=== PATIENT | male | born 1950 | race African-American/Black ===

== ENCOUNTER 2016-03-13 06:52 | Emergency (ER) | payer OTHER ==
[~2016-03-13] VITALS: Ht 188 cm; Wt 87.6 kg
[~2016-03-13 06:52] MED LIST: ASPIR 8181 M1 PO; GLIPIZIDE10 MG PO; GLIPIZIDE5 MG PO; HYDROCODON-ACE1 EAC8 PO; LIPITOR80 MG PO; LYRICA150 MG PO; LYRICA25 MG PO; MOBIC7.5 MG PO; MOTRIN600 MG PO; MOTRIN800 MG PO; NORCO 5/3251 TABLET PO; NORTRIPTYLINE H25 MG PO; NORTRIPTYLINE H75 MG PO; OXAYDO5 MG PO; OXYCODONE HCL5 MG PO; PRAVACHOL10 MG PO; TRAMADOL HCL50 MG PO; TYLENOL WITH C1 EACH PO; ZESTRIL2.5 MG PO; [UNRECOGNIZED DRUG - REMARK] PO
[2016-03-13 07:35] LABS: HEMATOCRIT 39.7 % (38.0-50.0); MCH 28.1 PG (29.0-34.0); MCV 85.2 FL (86-99); MEAN PLAT.VOLUME 9.6 uM^3 (9.0-12.4); PLATELET COUNT 160 K/uL (156-360); RBC DIS.WIDTH-CV 13.7 % (11.8-14.6); RED BLOOD COUNT 4.66 M/uL (4.00-5.50); WHITE BLOOD COUNT 8.2 K/uL (4.1-10.2)
[2016-03-13 08:01] LABS: ANION GAP 8 MEQ/L (2-14); CHLORIDE 100 MEQ/L (99-109); SAMPLE HEMOLYSIS CHECK 0; SAMPLE ICTERIC CHECK 0; SAMPLE LIPEMIA CHECK 0; SODIUM 135 MEQ/L (136-147); TOTAL BILIRUBIN 0.7 MG/DL (0.0-1.0)
[2016-03-13 08:07] LABS: ALKALINE PHOSPHATASE 56 IU/L (3-129); GFR ESTIMATE (CALCULATED) > 59 mL/min/; GLUCOSE 101 mg/dL (70-99); UREA NITROGEN (BUN) 11 mg/dL (9-23); URIC ACID 6.9 mg/dL (3.1-9.2)
[2016-03-13 08:38] VITALS: BP 144/79
== END 2016-03-13 08:38 | disposition home or self-care (01) ==
LOC: EME 06:52
PROVIDERS: Nurse Practitioner Family
DX: E11.40 Type 2 diabetes mellitus with diabetic neuropathy, unspecified (principal); M25.571 Pain in right ankle and joints of right foot; Z88.8 Allergy status to other drugs, medicaments and biological substances; E78.5 Hyperlipidemia, unspecified; I10 Essential (primary) hypertension; Z79.84 Long term (current) use of oral hypoglycemic drugs
CPT/HCPCS: 73610; 80053; 84550; 85027; 99281; 99284; J1885

== ENCOUNTER 2016-03-27 16:35 | Emergency (ER) | payer OTHER ==
[~2016-03-27] VITALS: Ht 188 cm; Wt 84.9 kg
[2016-03-27 19:03] VITALS: BP 126/81
== END 2016-03-27 19:04 | disposition home or self-care (01) ==
LOC: EME 16:35
DX: M25.572 Pain in left ankle and joints of left foot (principal); G89.29 Other chronic pain; G62.9 Polyneuropathy, unspecified
CPT/HCPCS: 99281; 99284; J3010

== ENCOUNTER 2016-04-18 06:56 | Emergency (ER) | payer OTHER ==
[~2016-04-18] VITALS: Ht 188 cm; Wt 85.0 kg
[2016-04-18 08:48] VITALS: BP 141/106
== END 2016-04-18 08:48 | disposition home or self-care (01) ==
LOC: EME 06:56
DX: M25.572 Pain in left ankle and joints of left foot (principal); G89.29 Other chronic pain; E11.40 Type 2 diabetes mellitus with diabetic neuropathy, unspecified
CPT/HCPCS: 99281; 99283; J3010

== ENCOUNTER 2016-04-18 14:37 | Emergency (ER) | payer OTHER ==
[~2016-04-18] VITALS: Ht 188 cm; Wt 84.1 kg
[2016-04-18 17:28] VITALS: BP 141/86
== END 2016-04-18 17:28 | disposition home or self-care (01) ==
LOC: EME 14:37
DX: G62.9 Polyneuropathy, unspecified (principal)
CPT/HCPCS: 99281; 99283; J1170

== ENCOUNTER 2016-05-19 16:29 | Emergency (ER) | payer OTHER ==
[~2016-05-19] VITALS: Ht 188 cm; Wt 87.1 kg
[2016-05-19 19:31] VITALS: BP 172/87
== END 2016-05-19 19:33 | disposition home or self-care (01) ==
LOC: EME 16:29
DX: G62.9 Polyneuropathy, unspecified (principal); M79.672 Pain in left foot; E11.9 Type 2 diabetes mellitus without complications
CPT/HCPCS: 99281; 99283; J3010

== ENCOUNTER 2016-05-22 21:17 | Emergency (ER) | payer OTHER ==
[~2016-05-22] VITALS: Ht 188 cm; Wt 87.3 kg
[2016-05-22] MEDS ORDERED: KEFLEX500 MG PO (23:06)
[2016-05-22 23:38] VITALS: BP 112/92
== END 2016-05-22 23:39 | disposition home or self-care (01) ==
LOC: EME 21:17
DX: S97.112A Crushing injury of left great toe, initial encounter (principal); W20.8XXA Other cause of strike by thrown, projected or falling object, initial encounter; E11.9 Type 2 diabetes mellitus without complications; I10 Essential (primary) hypertension; E78.5 Hyperlipidemia, unspecified
CPT/HCPCS: 73660; 99281; 99284

== ENCOUNTER 2016-05-29 04:02 | Emergency (ER) | payer OTHER ==
[~2016-05-29] VITALS: Ht 188 cm; Wt 88.4 kg
[~2016-05-29 04:02] MED LIST changes: +KEFLEX500 MG PO
[2016-05-29 05:53] VITALS: BP 169/101
== END 2016-05-29 05:58 | disposition home or self-care (01) ==
LOC: EME 04:02
DX: M25.572 Pain in left ankle and joints of left foot (principal); G89.29 Other chronic pain; I10 Essential (primary) hypertension; M79.605 Pain in left leg
CPT/HCPCS: 99281; 99284; J3010

== ENCOUNTER 2016-11-20 07:32 | Emergency (ER) | payer OTHER ==
[~2016-11-20] VITALS: Ht 188 cm; Wt 82.8 kg
[2016-11-20] MEDS ORDERED: ULTRAM50 MG PO (08:02)
[2016-11-20 08:14] VITALS: BP 131/78
== END 2016-11-20 08:15 | disposition home or self-care (01) ==
LOC: EME 07:32
DX: G62.9 Polyneuropathy, unspecified (principal); G89.29 Other chronic pain; M79.605 Pain in left leg; I10 Essential (primary) hypertension; E78.5 Hyperlipidemia, unspecified; E11.9 Type 2 diabetes mellitus without complications
CPT/HCPCS: 99281; 99283; J1885

== ENCOUNTER 2016-12-12 08:34 | Emergency (ER) | payer OTHER ==
[~2016-12-12] VITALS: Ht 188 cm; Wt 84.9 kg
[~2016-12-12 08:34] MED LIST changes: +ULTRAM50 MG PO
[2016-12-12 09:58] LABS: CHLORIDE 101 mEq/L (99-109); POTASSIUM 3.7 mEq/L (3.7-5.4); SODIUM 138 mEq/L (136-147)
[2016-12-12 10:00] LABS: GLUCOSE 83 mg/dL (70-99)
[2016-12-12 10:02] LABS: ANION GAP 10 MEQ/L (2-14); TOTAL BILIRUBIN 0.9 mg/dL (0.0-1.0)
[2016-12-12 10:04] LABS: ALKALINE PHOSPHATASE 81 IU/L (3-129); GFR ESTIMATE (CALCULATED) > 59 mL/min/
[2016-12-12 10:05] LABS: UREA NITROGEN (BUN) 10 mg/dL (9-23)
[2016-12-12 10:34] VITALS: BP 110/89
== END 2016-12-12 10:35 | disposition home or self-care (01) ==
LOC: EME 08:34
PROVIDERS: Nurse Practitioner Family
DX: E11.610 Type 2 diabetes mellitus with diabetic neuropathic arthropathy (principal)
CPT/HCPCS: 80053; 99281; 99284

== ENCOUNTER 2016-12-27 07:57 | Emergency (ER) | payer OTHER ==
[~2016-12-27] VITALS: Ht 188 cm; Wt 83.1 kg
[2016-12-27 08:58] VITALS: BP 145/98
== END 2016-12-27 08:58 | disposition home or self-care (01) ==
LOC: EME 07:57
DX: E11.40 Type 2 diabetes mellitus with diabetic neuropathy, unspecified (principal); M25.572 Pain in left ankle and joints of left foot; E78.5 Hyperlipidemia, unspecified; G89.29 Other chronic pain; I10 Essential (primary) hypertension
CPT/HCPCS: 99281; 99284; J1885

== ENCOUNTER 2017-01-23 15:20 | Emergency (ER) | payer OTHER ==
[~2017-01-23] VITALS: Ht 188 cm; Wt 84.6 kg
[2017-01-23 16:59] VITALS: BP 142/89
== END 2017-01-23 16:59 | disposition home or self-care (01) ==
LOC: EME 15:20
DX: E11.40 Type 2 diabetes mellitus with diabetic neuropathy, unspecified (principal); M25.572 Pain in left ankle and joints of left foot; M79.89 Other specified soft tissue disorders
CPT/HCPCS: 73610; 99281; 99284; J1885; J3010

== ENCOUNTER 2017-02-12 03:21 | Emergency (ER) | payer OTHER ==
[~2017-02-12] VITALS: Ht 188 cm; Wt 86.6 kg
[2017-02-12 05:55] VITALS: BP 140/95
== END 2017-02-12 06:11 | disposition home or self-care (01) ==
LOC: EME 03:21
DX: G89.29 Other chronic pain (principal); M25.571 Pain in right ankle and joints of right foot; E11.40 Type 2 diabetes mellitus with diabetic neuropathy, unspecified; I10 Essential (primary) hypertension; E78.00 Pure hypercholesterolemia, unspecified; Z79.84 Long term (current) use of oral hypoglycemic drugs
CPT/HCPCS: 99281; 99283; J3010

== ENCOUNTER 2017-02-23 22:02 | Emergency (ER) | payer OTHER ==
[~2017-02-23] VITALS: Ht 188 cm; Wt 88.7 kg
[2017-02-24 00:21] VITALS: BP 133/80
== END 2017-02-24 00:22 | disposition home or self-care (01) ==
LOC: EME 22:02
DX: M25.572 Pain in left ankle and joints of left foot (principal); G89.29 Other chronic pain; M25.472 Effusion, left ankle; E11.40 Type 2 diabetes mellitus with diabetic neuropathy, unspecified; I10 Essential (primary) hypertension; E78.5 Hyperlipidemia, unspecified; Z79.84 Long term (current) use of oral hypoglycemic drugs
CPT/HCPCS: 73610; 99281; 99284; J2270

== ENCOUNTER 2017-03-08 19:25 | Emergency (ER) | payer OTHER ==
[~2017-03-08] VITALS: Ht 188 cm; Wt 88.3 kg
[2017-03-08] MEDS ORDERED: OXAYDO5 MG PO (21:07)
[2017-03-08] MEDS ORDERED: LYRICA150 MG PO (21:08)
[2017-03-08 22:44] LABS: BASOPHIL (%) 0.7 % (0-1); BASOPHIL COUNT 0.1 K/uL (0-0.1); EOSINOPHIL (%) 2.1 % (0-5); EOSINOPHIL COUNT 0.2 K/uL (0-0.3); HEMATOCRIT 42.9 % (38.0-50.0); HEMOGLOBIN 14.3 G/DL (12.5-16.6); IMMATURE GRANULOCYTE (%) 0.3 % (0.0-0.7); LYMPHOCYTE (%) 38.6 % (15-42); LYMPHOCYTE COUNT 2.8 K/uL (1.0-2.8); MCH 29.2 PG (29.0-34.0); MCHC 33.3 G/DL (30.0-36.0); MCV 87.7 FL (86-99); MONOCYTE (%) 10.4 % (3-12); MONOCYTE COUNT 0.8 K/uL (0-0.8); NEUTROPHIL (%) 47.9 % (45-76); NEUTROPHIL COUNT 3.4 K/uL (1.8-6.4); PLATELET COUNT 218 K/uL (156-360); RBC DIS.WIDTH-CV 13.8 % (11.8-14.6); RBC DIS.WIDTH-SD 44.7 % (39-53); RED BLOOD COUNT 4.89 M/uL (4.00-5.50); WHITE BLOOD COUNT 7.2 K/uL (4.1-10.2)
[2017-03-08 22:53] LABS: CHLORIDE 103 mEq/L (99-109); POTASSIUM 3.7 mEq/L (3.7-5.4); SODIUM 137 mEq/L (136-147)
[2017-03-08 22:55] LABS: GLUCOSE 197 mg/dL (70-99)
[2017-03-08 22:59] LABS: CREATININE 1.5 mg/dL (0.6-1.3); GFR ESTIMATE (CALCULATED) > 59 mL/min/ (58.99-99999)
[2017-03-08 23:00] LABS: UREA NITROGEN (BUN) 11 mg/dL (9-23)
[2017-03-08 23:01] LABS: URIC ACID 6.8 mg/dL (3.1-9.2)
[2017-03-09 00:25] VITALS: BP 180/90
== END 2017-03-09 00:25 | disposition home or self-care (01) ==
LOC: EME 19:25
PROVIDERS: Physician Assistant
DX: M25.572 Pain in left ankle and joints of left foot (principal); E11.9 Type 2 diabetes mellitus without complications
CPT/HCPCS: 80048; 84550; 85025; 99281; 99284; J1885

== ENCOUNTER 2017-03-17 07:07 | Emergency (ER) | payer OTHER ==
[~2017-03-17] VITALS: Ht 188 cm; Wt 85.3 kg
[2017-03-17 08:23] VITALS: BP 155/93
== END 2017-03-17 08:24 | disposition home or self-care (01) ==
LOC: EME 07:07
DX: M25.572 Pain in left ankle and joints of left foot (principal); G89.29 Other chronic pain; I10 Essential (primary) hypertension; E78.5 Hyperlipidemia, unspecified; E11.9 Type 2 diabetes mellitus without complications; Z79.84 Long term (current) use of oral hypoglycemic drugs
CPT/HCPCS: 99281; 99283; J1885

== ENCOUNTER 2017-05-05 01:12 | Emergency (ER) | payer OTHER ==
[~2017-05-05] VITALS: Ht 190.5 cm; Wt 89.4 kg
[2017-05-05 02:27] LABS: HEMATOCRIT 42.3 % (38.0-50.0); HEMOGLOBIN 14.5 G/DL (12.5-16.6); MCH 29.6 PG (29.0-34.0); MCHC 34.3 G/DL (30.0-36.0); MCV 86.3 FL (86-99); PLATELET COUNT 231 K/uL (156-360); RBC DIS.WIDTH-CV 13.3 % (11.8-14.6)
[2017-05-05 02:35] LABS: CHLORIDE 101 mEq/L (99-109); POTASSIUM 4.2 mEq/L (3.7-5.4); SODIUM 133 mEq/L (136-147)
[2017-05-05 02:39] LABS: GLUCOSE 384 mg/dL (70-99)
[2017-05-05 02:41] LABS: CREATININE 1.4 mg/dL (0.6-1.3); GFR ESTIMATE (CALCULATED) > 59 mL/min/ (58.99-99999)
[2017-05-05 02:42] LABS: UREA NITROGEN (BUN) 11 mg/dL (9-23)
[2017-05-05 03:02] LABS: CREATINE KINASE 53 IU/L (1-294)
[2017-05-05 04:35] VITALS: BP 159/88
== END 2017-05-05 04:39 | disposition home or self-care (01) ==
LOC: EME 01:12
PROVIDERS: Physician Assistant
DX: E11.42 Type 2 diabetes mellitus with diabetic polyneuropathy (principal); E11.65 Type 2 diabetes mellitus with hyperglycemia; R11.2 Nausea with vomiting, unspecified; T41.295A Adverse effect of other general anesthetics, initial encounter; I44.0 Atrioventricular block, first degree; R94.31 Abnormal electrocardiogram [ECG] [EKG]; G89.29 Other chronic pain; Z79.891 Long term (current) use of opiate analgesic; Z79.84 Long term (current) use of oral hypoglycemic drugs; Z88.8 Allergy status to other drugs, medicaments and biological substances
CPT/HCPCS: 80048; 82550; 85027; 93005; 99281; 99284; J3010

== ENCOUNTER 2017-06-07 03:14 | Emergency (ER) | payer OTHER ==
[~2017-06-07] VITALS: Ht 188 cm; Wt 89.6 kg
[2017-06-07] MEDS ORDERED: OXYCONTIN15 MG PO (04:40)
[2017-06-07 05:07] VITALS: BP 184/97
== END 2017-06-07 05:07 | disposition home or self-care (01) ==
LOC: EME 03:14
DX: E11.40 Type 2 diabetes mellitus with diabetic neuropathy, unspecified (principal); I10 Essential (primary) hypertension; Z88.8 Allergy status to other drugs, medicaments and biological substances
CPT/HCPCS: 99281; 99283; J1885

== ENCOUNTER 2017-07-06 04:30 | Emergency (ER) | payer OTHER ==
[~2017-07-06] VITALS: Ht 188 cm; Wt 86.0 kg
[~2017-07-06 04:30] MED LIST changes: +OXYCONTIN15 MG PO
[2017-07-06 04:33] VITALS: BP 132/98
== END 2017-07-06 05:39 | disposition home or self-care (01) ==
LOC: EME 04:30
DX: G89.29 Other chronic pain (principal); M25.572 Pain in left ankle and joints of left foot; I10 Essential (primary) hypertension; Z88.8 Allergy status to other drugs, medicaments and biological substances
CPT/HCPCS: 99281; 99283; J1885

== ENCOUNTER 2017-07-20 13:27 | Emergency (ER) | payer OTHER ==
[~2017-07-20] VITALS: Ht 188 cm; Wt 85.7 kg
[2017-07-20 15:23] VITALS: BP 143/95
== END 2017-07-20 16:10 | disposition home or self-care (01) ==
LOC: RME 13:27 → EME 13:27 → RME 16:10
DX: M19.90 Unspecified osteoarthritis, unspecified site (principal); E11.42 Type 2 diabetes mellitus with diabetic polyneuropathy; I10 Essential (primary) hypertension; Z79.84 Long term (current) use of oral hypoglycemic drugs; Z88.8 Allergy status to other drugs, medicaments and biological substances
CPT/HCPCS: 99281; 99284; J1885

== ENCOUNTER 2017-07-30 04:39 | Emergency (ER) | payer OTHER ==
[~2017-07-30] VITALS: Ht 188 cm; Wt 87.1 kg
[2017-07-30 08:12] LABS: HEMOGLOBIN 14.8 G/DL (12.5-16.6); MCH 29.2 PG (29.0-34.0); MCHC 34.4 G/DL (30.0-36.0); RBC DIS.WIDTH-CV 13.1 % (11.8-14.6); RBC DIS.WIDTH-SD 40.9 % (39-53); RED BLOOD COUNT 5.06 M/uL (4.00-5.50); WHITE BLOOD COUNT 7.7 K/uL (4.1-10.2)
[2017-07-30 08:24] LABS: URIC ACID 6.1 mg/dL (3.1-9.2)
[2017-07-30 08:28] LABS: CHLORIDE 101 mEq/L (99-109); POTASSIUM 4.1 mEq/L (3.7-5.4)
[2017-07-30 08:29] LABS: SODIUM 135 mEq/L (136-147)
[2017-07-30 08:30] LABS: GLUCOSE 165 mg/dL (70-99)
[2017-07-30 08:34] LABS: CREATININE 1.2 mg/dL (0.6-1.3); GFR ESTIMATE (CALCULATED) > 59 mL/min/ (58.99-99999)
[2017-07-30 08:35] LABS: UREA NITROGEN (BUN) 10 mg/dL (9-23)
[2017-07-30 09:16] VITALS: BP 157/98
[2017-07-30 09:46] LABS: PLAT.SUFFICIENCY ADEQUATE; PLATELET COUNT 163 K/uL (156-360)
== END 2017-07-30 09:21 | disposition home or self-care (01) ==
LOC: EME 04:39
PROVIDERS: Physician Assistant
DX: G89.29 Other chronic pain (principal); M25.572 Pain in left ankle and joints of left foot; Z88.8 Allergy status to other drugs, medicaments and biological substances
CPT/HCPCS: 80048; 84550; 85027; 99281; 99284; J3010

== ENCOUNTER 2017-08-27 07:38 | Emergency (ER) | payer OTHER ==
[~2017-08-27] VITALS: Ht 188 cm; Wt 85.9 kg
[2017-08-27 08:55] LABS: HEMATOCRIT 43.2 % (38.0-50.0); HEMOGLOBIN 14.5 G/DL (12.5-16.6); MCHC 33.6 G/DL (30.0-36.0); MCV 86.4 FL (86-99); RBC DIS.WIDTH-CV 13.3 % (11.8-14.6); RBC DIS.WIDTH-SD 42.1 % (39-53); WHITE BLOOD COUNT 7.3 K/uL (4.1-10.2)
[2017-08-27 08:58] LABS: PLATELET COUNT 213 K/uL (156-360)
[2017-08-27 09:10] LABS: INTER. NORMALIZED RATIO 1.2
[2017-08-27 09:12] LABS: PTT 30.4 SEC (25-37)
[2017-08-27 09:21] LABS: CHLORIDE 101 MEQ/L (99-109); CREATININE 1.3 MG/DL (0.6-1.3); GFR ESTIMATE (CALCULATED) > 59 mL/min/ (58.99-99999); GLUCOSE 98 mg/dL (70-99); POTASSIUM 3.5 MEQ/L (3.7-5.4); SODIUM 137 MEQ/L (136-147); UREA NITROGEN (BUN) 13 mg/dL (9-23)
[2017-08-27] MEDS ORDERED: PERCOCET 5/31 TABLET PO (10:34)
[2017-08-27 11:03] VITALS: BP 161/87
== END 2017-08-27 11:05 | disposition home or self-care (01) ==
LOC: EME 07:38
PROVIDERS: Nurse Practitioner Family
DX: M25.571 Pain in right ankle and joints of right foot (principal); E11.42 Type 2 diabetes mellitus with diabetic polyneuropathy; E11.51 Type 2 diabetes mellitus with diabetic peripheral angiopathy without gangrene; E78.5 Hyperlipidemia, unspecified; I10 Essential (primary) hypertension; Z79.84 Long term (current) use of oral hypoglycemic drugs; Z88.8 Allergy status to other drugs, medicaments and biological substances
CPT/HCPCS: 80048; 85027; 85610; 85730; 93926; 93971; 99281; 99284; J3010

== ENCOUNTER 2017-10-17 07:57 | Emergency (ER) | payer OTHER ==
[~2017-10-17] VITALS: Ht 188 cm; Wt 87.3 kg
[~2017-10-17 07:57] MED LIST changes: +PERCOCET 5/31 TABLET PO
[2017-10-17 12:10] VITALS: BP 131/87
== END 2017-10-17 12:35 | disposition home or self-care (01) ==
LOC: EME 07:57
DX: G89.29 Other chronic pain (principal); M79.605 Pain in left leg; G62.9 Polyneuropathy, unspecified; Z88.8 Allergy status to other drugs, medicaments and biological substances
CPT/HCPCS: 93971; 99281; 99283; J2270

== ENCOUNTER 2017-10-21 08:29 | Emergency (ER) | payer OTHER ==
[~2017-10-21] VITALS: Ht 188 cm; Wt 87.0 kg
[2017-10-21 10:10] VITALS: BP 162/72
== END 2017-10-21 10:13 | disposition home or self-care (01) ==
LOC: EME 08:29
DX: G62.9 Polyneuropathy, unspecified (principal); E11.9 Type 2 diabetes mellitus without complications; E78.5 Hyperlipidemia, unspecified; I10 Essential (primary) hypertension
CPT/HCPCS: 99281; 99284; J2270